=== PATIENT | female | born 1990 | race Caucasian/White ===

== ENCOUNTER 2018-05-02 05:31 | Emergency (ER) | payer OTHER ==
[2018-05-02] MEDS ORDERED: ONDANSETRON HCL INJ/PF 4 MG/2 ML SDV IV ONE (05:39)
[2018-05-02] MEDS ORDERED: NORMAL SALINE 1000 ML 1,000 ML IV ONE ×2 (05:39→06:10)
--- NOTE | 2018-05-02 05:42 | ER Document Report ---
ED Medical Screen (RME) - General Stated Complaint: ANXIETY Time Seen by Provider: 05/02/18 05:34 Notes: 27 year old female comes by EMS for chief complaint of alcohol intoxication and anxiety. Friend states she was hyperventilating like she was having a panic attack. Given 25 mg Benadryl IV by EMS for anxiety. No vomiting, fall, injury, or other complaints. Physical Exam - General General appearance: Other - Very intoxicated, slurring words, sleeping but easily aroused - HEENT Head: Normocephalic, Atraumatic - Respiratory Respiratory status: No respiratory distress Chest status: Nontender. No: Tender Breath sounds: Normal. No: Decreased air movement, Nonproductive cough, Productive cough, Wheezing
[2018-05-02 06:45] LABS: ANION GAP 14 (5-19); BLOOD UREA NITROGEN 8 mg/dL (7-20); CALCIUM 9.1 mg/dL (8.4-10.2); CARBON DIOXIDE 20 mmol/L (22-30); CHLORIDE 112 mmol/L (98-107); GLUCOSE 93 mg/dL (75-110); POTASSIUM 4.3 mmol/L (3.6-5.0); SODIUM 146.1 mmol/L (137-145)
--- NOTE | 2018-05-02 08:02 | ER Document Report ---
ED General - General Chief Complaint: ETOH Abuse Stated Complaint: ANXIETY Time Seen by Provider: 05/02/18 05:34 TRAVEL OUTSIDE OF THE [place] IN LAST 30 DAYS: No - HPI Patient complains to provider of: EtOH abuse anxiety Notes: Patient came in by EMS prior to my arrival here to the ER. Patient was evaluated by my provider. Apparently patient was out drinking for her bachelorette republic[employer] having multiple alcoholic drinks started having some hyperventilation and possible anxiety attack with some nausea vomiting. Patient was given Benadryl 25 mg prior to arrival here in the ER. Upon my evaluation patient is lying in the right lateral recumbent position. Patient's does admit to drinking alcohol stating "I will not do that again". Otherwise family is at bedside no other complaints denies any trauma. Patient resting comfortably from my evaluation. - Related Data Allergies/Adverse Reactions: No Known Allergies Allergy (Unverified 05/02/18 05:42) Past Medical History - Social History Smoking Status: Current Every Day Smoker Frequency of alcohol use: Social Drug Abuse: None Family History: Reviewed & Not Pertinent Patient has suicidal ideation: No Patient has homicidal ideation: No Renal/ Medical History: Denies: Hx Peritoneal Dialysis GI Medical History: Reports: Hx Gastroesophageal Reflux Disease Review of Systems - Review of Systems Constitutional: Other - Anxiety EENT: No symptoms reported Cardiovascular: No symptoms reported Respiratory: No symptoms reported Gastrointestinal: No symptoms reported Genitourinary: No symptoms reported Female Genitourinary: No symptoms reported Musculoskeletal: No symptoms reported Skin: No symptoms reported Hematologic/Lymphatic: No symptoms reported Neurological/Psychological: No symptoms reported -: Yes All other systems reviewed and negative Physical Exam - Vital signs Vitals: Pulse Ox 99 05/02/18 05:32 Interpretation: Normal - General General appearance: Appears well, Alert - HEENT Head: Normocephalic, Atraumatic Eyes: Normal Pupils: PERRL - Respiratory Respiratory status: No respiratory distress Chest status: Nontender Breath sounds: Normal Chest palpation: Normal - Cardiovascular Rhythm: Regular Heart sounds: Normal auscultation Murmur: No - Abdominal Inspection: Normal Distension: No distension Bowel sounds: Normal Tenderness: Nontender Organomegaly: No organomegaly - Back Back: Normal, Nontender - Extremities General upper extremity: Normal inspection, Nontender, Normal color, Normal ROM , Normal temperature General lower extremity: Normal inspection, Nontender, Normal color, Normal ROM , Normal temperature, Normal weight bearing. No: Sonja's sign - Neurological Neuro grossly intact: Yes Cognition: Normal Orientation: AAOx4 [place] Coma Scale Eye Opening: Spontaneous [place] Coma Scale Verbal: Oriented [place] Coma Scale Motor: Obeys Commands [place] Coma Scale Total: 15 Speech: Normal Motor strength normal: LUE, RUE, LLE, RLE Sensory: Normal - Psychological Associated symptoms: Normal affect, Normal mood - Skin Skin Temperature: Warm Skin Moisture: Dry Skin Color: Normal Course - Re-evaluation Re-evalutation: 05/02/18 13:55 Patient reevaluation and laboratory walking around the ER without difficulty. Patient requesting to be discharged. No acute pathology seen. Patient will be discharged to the custody of her family at bedside. - Vital Signs Vital signs: Temp Pulse Resp BP Pulse Ox 22 H 99/62 L 99 05/02/18 09:31 05/02/18 09:31 05/02/18 09:31 - Laboratory Result Diagrams: 05/02/18 06:04 Laboratory results interpreted by me: 05/02/18 06:04 Sodium 146.1 H Chloride 112 H Carbon Dioxide 20 L Discharge - Discharge Clinical Impression: Acute alcohol intoxication Qualifiers: Complication of substance-induced condition: uncomplicated Qualified Code(s): F10.929 - Alcohol use, unspecified with intoxication, unspecified Condition: Good Disposition: HOME, SELF-CARE Instructions: Acute Alcohol Intoxication ([facility]) Additional Instructions: Laboratory studies today do show any acute abnormality. Please abstain from heavy alcohol ingestion. Will continue home with Lillie to help out with any nausea that she may experience over the next 1224 hrs. Would recommend eating a bland diet for the rest today drinking plenty of fluids to make sure that she stay hydrated. Return to the ER symptoms worsen. Follow up with her primary care physician. Prescriptions: Ondansetron [Zofran Odt 4 mg Tablet] 4 mg PO Q4HP PRN #30 tab.rapdis PRN Reason: Forms: Return to Work
[2018-05-02 09:52] VITALS: BP 99/62
== END 2018-05-02 09:56 | disposition home or self-care (01) ==
LOC: ER 05:31
DX: F10.120 Alcohol abuse with intoxication, uncomplicated (principal); R11.2 Nausea with vomiting, unspecified; F17.200 Nicotine dependence, unspecified, uncomplicated; F41.9 Anxiety disorder, unspecified
CPT/HCPCS: 99284; 96361; 96374; 36415; 80307; 84703; 80048; J2405; J7030